=== PATIENT | female | born 1980 | race Caucasian/White ===

== ENCOUNTER 2018-03-23 23:36 | Emergency (ER) | payer BC, OTHER ==
[2018-03-23] MEDS ORDERED: Sodium Chloride 0.9% 1,000 ML IV SCH (23:45)
[2018-03-23] MEDS ORDERED: Sodium Chloride 0.9% 10 ML Syringe FLUSH PRN (23:46)
[2018-03-23] MEDS ORDERED: Adenosine 6 MG/2 ML SDV IVPUSH ONE (23:47)
[2018-03-23] MEDS ORDERED: Adenosine 6 MG/2 ML SDV ONE (23:48)
[2018-03-23] MEDS ORDERED: Adenosine 12 MG/4 ML SDV ONE (23:49)
[2018-03-23] MEDS ORDERED: Adenosine 12 MG/4 ML SDV IVPUSH ONE (23:53)
--- NOTE | 2018-03-24 00:32 | EDM.PDOC ---
ED HPI GENERAL MEDICAL PROBLEM - General Chief Complaint: Cardiovascular Problem Stated Complaint: CHEST PAIN Time Seen by Provider: 03/23/18 23:43 Source of Information: Reports: Patient History Limitations: Reports: No Limitations - History of Present Illness INITIAL COMMENTS - FREE TEXT/NARRATIVE: The patient presents with SVT. She has a history of SVT. She usually needs a 2 doses of adenosine to convert her. She noticed it started this evening. She was not doing anything strenuous. She has a history of Graves disease and she had her thyroid removed and now she is on levothyroxine and metoprolol. There has been no changes to her meds. She has some shortness of breath with this and a little chest tightness. She had no fever, chills, cough, abdominal pain, nausea or vomiting. Onset: Sudden Duration: Minutes: Location: Reports: Chest Quality: Reports: Other (tightness) Severity: Moderate Improves with: Reports: None Worsens with: Reports: None Associated Symptoms: Reports: Chest Pain, Shortness of Breath. Denies: Confusion, Cough, Fever/Chills, Headaches, Nausea/Vomiting Left Chest Pain Score (Numeric/FACES): 3 - Related Data Allergies Allergy/AdvReac Type Severity Reaction Status Date / Time lisinopril Allergy Facial Verified 03/23/18 23:56 Swelling Penicillins Allergy Edema Verified 03/23/18 23:42 Sulfa (Sulfonamide Allergy Edema Verified 03/23/18 23:42 Antibiotics) Home Meds: Home Meds Levothyroxine 75 mcg PO DAILY 03/23/18 [History] Metoprolol Succinate 12.5 mg PO DAILY 03/23/18 [History] Potassium Chloride 20 meq PO DAILY #30 tablet.er 03/24/18 [Rx] Past Medical History Cardiovascular History: Reports: Arrhythmia [employer] History: Reports: Endocrine/Metabolic History: Reports: Hypothyroidism - Past Surgical History Endocrine Surgical History: Reports: Thyroidectomy Social & Family History - Tobacco Use Smoking Status *Q: Never Smoker - Recreational Drug Use Recreational Drug Use: No ED ROS GENERAL - Review of Systems Review Of Systems: See Below Constitutional: Reports: No Symptoms HEENT: Reports: No Symptoms Respiratory: Reports: Shortness of Breath Cardiovascular: Reports: Chest Pain, Palpitations Endocrine: Reports: No Symptoms GI/Abdominal: Reports: No Symptoms : Reports: No Symptoms Musculoskeletal: Reports: No Symptoms Skin: Reports: No Symptoms ED EXAM, GENERAL - Physical Exam Exam: See Below Exam Limited By: No Limitations General Appearance: Alert, No Apparent Distress Ears: Normal External Exam Nose: Normal Inspection Head: Atraumatic, Normocephalic Neck: Normal Inspection Respiratory/Chest: No Respiratory Distress, Lungs Clear, Normal Breath Sounds Cardiovascular: No Edema, No Rub, Tachycardia GI/Abdominal: Soft, Non-Tender, No Organomegaly, No Mass Extremities: Normal Inspection Neurological: Alert, Oriented, No Motor/Sensory Deficits EKG INTERPRETATION EKG Date: 03/24/18 Time: 23:49 Rhythm: Other (SVT) Rate (Beats/Min): 160 [place]: Normal P-Wave: Present QRS: Normal ST-T: Depressed QT: Normal Course - Vital Signs Last Recorded V/S: Last Vital Signs Temp 98 F 03/23/18 23:38 Pulse 89 03/24/18 00:39 Resp 15 03/24/18 00:39 BP 125/76 03/24/18 00:39 Pulse Ox 99 03/24/18 00:39 - Orders/Labs/Meds Orders: Active Orders 24 hr Category Date Time Status Cardiac Monitoring [RC] . DIRECTED Care 03/23/18 23:46 Active EKG Documentation Completion [RC] ASDIRECTED Care 03/23/18 23:50 Active EKG Documentation Completion [RC] STAT Care 03/23/18 23:46 Active Oxygen Therapy [RC] PRN Care 03/23/18 23:46 Active Peripheral IV Care [RC] . DIRECTED Care 03/23/18 23:46 Active Chest 1V Frontal [CR] Stat Exams 03/23/18 23:47 Taken Sodium Chloride 0.9% [Normal Saline] 1,000 ml Med 03/23/18 23:45 Active IV ASDIRECTED Sodium Chloride 0.9% [Saline Flush] Med 03/23/18 23:46 Active 10 ml FLUSH ASDIRECTED PRN Peripheral IV Insertion Adult [OM.PC] Stat Oth 03/23/18 23:46 Ordered Medication Orders Sodium Chloride (Normal Saline) 1,000 mls @ 125 mls/hr IV ASDIRECTED DEE Last Admin: 03/23/18 23:59 Dose: 125 mls/hr Sodium Chloride (Saline Flush) 10 ml FLUSH ASDIRECTED PRN PRN Reason: Keep Vein Open Last Admin: 03/23/18 23:52 Dose: 10 ml Labs: Laboratory Tests 03/23/18 03/23/18 Range/Units 23:45 23:45 WBC 10.86 H (3.98-10.04) K/mm3 RBC 4.57 (3.98-5.22) M/mm3 Hgb 13.6 (11.2-15.7) gm/L Hct 42.0 (34.1-44.9) % MCV 91.9 (79.4-94.8) fl MCH 29.8 (25.6-32.2) pg MCHC 32.4 (32.2-35.5) g/dl RDW Std Deviation 44.6 (36.4-46.3) fL Plt Count 287 (182-369) K/mm3 MPV 10.1 (9.4-12.3) fl Neut % (Auto) 48.5 (34.0-71.1) % Lymph % (Auto) 38.5 (19.3-51.7) % Harper % (Auto) 9.5 (4.7-12.5) % Eos % (Auto) 2.9 (0.7-5.8) Baso % (Auto) 0.4 (0.1-1.2) % Neut # (Auto) 5.28 (1.56-6.13) K/mm3 Lymph # (Auto) 4.18 H (1.18-3.74) K/mm3 Harper # (Auto) 1.03 H (0.24-0.36) K/mm3 Eos # (Auto) 0.31 (0.04-0.36) K/mm3 Baso # (Auto) 0.04 (0.01-0.08) K/mm3 Sodium 139 (136-145) mEq/L Potassium 3.0 L (3.5-5.1) mEq/L Chloride 102 (98-107) mEq/L Carbon Dioxide 26 (21-32) mEq/L Anion Gap 14.0 (5-15) BUN 13 (7-18) mg/dL Creatinine 1.2 H (0.55-1.02) mg/dL Est Cr Clr Drug Dosing 69.41 mL/min Estimated GFR (MDRD) 51 (>60) mL/min BUN/Creatinine Ratio 10.8 L (14-18) Glucose 110 H (74-106) mg/dL Calcium 9.4 (8.5-10.1) mg/dL Total Bilirubin 0.5 (0.2-1.0) mg/dL AST 23 (15-37) U/L ALT 22 (14-59) U/L Alkaline Phosphatase 53 (46-116) U/L Troponin I < 0.017 (0.00-0.056) ng/mL Total Protein 8.1 (6.4-8.2) g/dl Albumin 4.0 (3.4-5.0) g/dl Globulin 4.1 gm/dL Albumin/Globulin Ratio 1.0 (1-2) Meds: Medications Generic Name Dose Route Start Last Admin Trade Name Freq PRN Reason Stop Dose Admin Sodium Chloride 1,000 mls @ 125 mls/hr 03/23/18 23:45 03/23/18 23:59 Normal Saline IV 125 mls/hr ASDIRECTED DEE Administration Sodium Chloride 10 ml 03/23/18 23:46 03/23/18 23:52 Saline Flush FLUSH 10 ml ASDIRECTED PRN Administration Keep Vein Open Discontinued Medications Generic Name Dose Route Start Last Admin Trade Name Freq PRN Reason Stop Dose Admin Adenosine 6 mg 03/23/18 23:47 03/23/18 23:52 Adenocard IVPUSH 03/23/18 23:48 6 mg NOW ONE Administration Adenosine Confirm 03/23/18 23:48 03/23/18 23:53 Adenocard Administered 03/23/18 23:49 Not Given Dose 6 mg .ROUTE .STK-MED ONE Adenosine Confirm 03/23/18 23:49 03/23/18 23:53 Adenocard Administered 03/23/18 23:50 Not Given Dose 12 mg .ROUTE .STK-MED ONE Adenosine 12 mg 03/23/18 23:53 03/23/18 23:53 Adenocard IVPUSH 03/23/18 23:54 12 mg NOW ONE Administration - Re-Assessments/Exams Free Text/Narrative Re-Assessment/Exam: 03/24/18 00:33 I ordered an IV saline lock, EKG, CXR, labs, adenosine 6mg IV and adenosine 12mg IV. Her EKG confirms SVT. I ordered 6mg of adenosine. That did nothing so I ordered 12mgs of adenosine. That did convert her to a NSR with no acute changes on her EKG. Her CXR looks good. I am waiting for her labs. 03/24/18 00:48 Her WBC is slightly elevated at 10.86. Her K was 3. Her creatinine is 1.2. Her troponin is negative. She feels better. I will discharge her to home. Departure - Departure Time of Disposition: 00:50 Disposition: Home, Self-Care 01 Condition: Good Clinical Impression: SVT (supraventricular tachycardia), Hypokalemia Prescriptions: Potassium Chloride 20 meq PO DAILY #30 tablet.er Referrals: Zhanna Perez, [employer] [Primary Care Provider] - 1 Week Forms: ED Department Discharge Additional Instructions: Take your medication as prescribed. Take the potassium daily. Follow up with Zhanna Perez in 1 week. Please return if you are worse. - My Orders Last 24 Hours: My Active Orders 03/23/18 23:45 Sodium Chloride 0.9% [Normal Saline] 1,000 ml IV ASDIRECTED 03/23/18 23:46 Cardiac Monitoring [RC] . DIRECTED EKG Documentation Completion [RC] STAT Oxygen Therapy [RC] PRN Peripheral IV Care [RC] . DIRECTED Sodium Chloride 0.9% [Saline Flush] 10 ml FLUSH ASDIRECTED PRN Peripheral IV Insertion Adult [OM.PC] Stat 03/23/18 23:47 Chest 1V Frontal [CR] Stat 03/23/18 23:50 EKG Documentation Completion [RC] ASDIRECTED - Assessment/Plan Last 24 Hours: My Active Orders 03/23/18 23:45 Sodium Chloride 0.9% [Normal Saline] 1,000 ml IV ASDIRECTED 03/23/18 23:46 Cardiac Monitoring [RC] . DIRECTED EKG Documentation Completion [RC] STAT Oxygen Therapy [RC] PRN Peripheral IV Care [RC] . DIRECTED Sodium Chloride 0.9% [Saline Flush] 10 ml FLUSH ASDIRECTED PRN Peripheral IV Insertion Adult [OM.PC] Stat 03/23/18 23:47 Chest 1V Frontal [CR] Stat 03/23/18 23:50 EKG Documentation Completion [RC] ASDIRECTED
--- NOTE | 2018-03-24 08:31 | CR ---
Chest: Frontal view of the chest was obtained. Comparison: Prior chest x-ray of 10/21/09. Heart size and mediastinum are within normal limits for technique. Lungs are clear. Bony structures are grossly intact. Impression: 1. Nothing acute is seen on frontal chest x-ray. Diagnostic code #1
== END 2018-03-24 00:57 | disposition home or self-care (01) ==
LOC: JD.ED 23:36
DX: I47.1 Supraventricular tachycardia (principal); E87.6 Hypokalemia; E03.9 Hypothyroidism, unspecified; Z88.0 Allergy status to penicillin; Z88.8 Allergy status to other drugs, medicaments and biological substances; Z88.2 Allergy status to sulfonamides; Z79.899 Other long term (current) drug therapy
CPT/HCPCS: 36415; 71045; 80053; 84484; 85025; 93005; 96361; 96374; 99285; J0153; J7040; J7050